=== PATIENT | male | born 1970 | race African-American/Black ===

== ENCOUNTER 2017-08-20 08:51 | Emergency (ER) | payer MEDICARE, MEDICAID ==
[2017-08-20 09:49] VITALS: TEMP 96.8
--- NOTE | 2017-08-20 11:03 | ED.PDOC ---
History of Present Illness - General Chief Complaint: GI Problem Stated Complaint: abdominal pain Time Seen by Provider: 08/20/17 11:03 Exam Limitations: no limitations - History of Present Illness Initial Comments: Taz Segura 46 y/o male stated that he had sharp constant lower abdominal pain since yesterday with vomiting 2-3 x no diarrhea.Had recent A-V fistula for dialysis yesterday due to ESRD from uncontrolled HTN. Abdominal Pain Onset Location: other - lower abdomen Pain Radiation: no radiation Quality: sharpness, steady Timing/Duration: 24 hours Improving Factors: nothing Worsening Factors: nothing Associated Symptoms: other - see hpi Review of Systems - Review of Systems Constitutional: States: no symptoms reported EENTM: States: no symptoms reported Respiratory: States: no symptoms reported Cardiology: States: no symptoms reported Genitourinary: States: see HPI, other - esrd All other Systems: Reviewed and Negative, No Change from Baseline Past Medical History (General) - Patient Medical History Hx Cardiac Disorders: Yes - cad Hx Congestive Heart Failure: No Hx Hypertension: Yes Hx Renal Disease: Yes Hx Cancer: No Surgical History: other - a-v fistula dialysis access - Vaccination History Hx Tetanus, Diphtheria Vaccination: Yes Hx Influenza Vaccination: Yes Hx Pneumococcal Vaccination: Yes - 2015 - Social History Hx Tobacco Use: No Hx Alcohol Use: No Family Medical History - Family History Father Family History: Unknown Living Status: Unknown Hx Family Hypertension: Yes - parents Hx Family Cancer: Yes - lungs-dad Physical Exam - Physical Exam General Appearance: Alert, Comfortable, No apparent distress Eyes, Ears, Nose, Throat Exam: normal ENT inspection, pharynx normal Neck: non-tender, full range of motion, supple Respiratory: lungs clear, normal breath sounds, no respiratory distress Cardiovascular/Chest: normal peripheral pulses, regular rate, rhythm, no murmur Peripheral Pulses: No deficit Gastrointestinal/Abdominal: normal bowel sounds, soft, tenderness - lower abdomen no peritoneal signs Back Exam: no CVA tenderness, no vertebral tenderness Extremity: no pedal edema, no calf tenderness Neurologic: alert, oriented x 3 Progress - Progress Progress: 08/20/17 12:24 Vital Signs - 8 hr 08/20/17 09:38 Temperature 96.8 F L Pulse Rate [ 61 pulse ox] Respiratory 18 Rate Blood Pressure 142/99 [Right Arm] O2 Sat by Pulse 97 Oximetry - Results/Orders Results/Orders: 08/20/17 11:03 IV Care:Saline Lock per Protoc QSHIFT 08/20/17 11:04 EKG Assessment ONCE 08/20/17 11:15 EKG STAT EKG STAT 08/20/17 11:20 CARDIAC PANEL,ER Stat HEPATIC FUNCTION PANEL Stat LIPASE Stat 08/20/17 11:34 URINALYSIS Stat 08/20/17 12:45 Be Our Guest Tray (BOG) ONCE Laboratory Results - last 24 hr 08/20/17 08/20/17 08/20/17 11:20 11:20 11:20 WBC 7.2 RBC 4.48 L Hgb 11.1 L Hct 35.5 L MCV 79.3 L MCH 24.7 L MCHC 31.1 L RDW 18.9 H Plt Count 260 MPV 7.7 Absolute Neuts (auto) 4.60 Absolute Lymphs (auto) 1.60 Absolute Monos (auto) 0.60 Absolute Eos (auto) 0.20 Absolute Basos (auto) 0.10 Neutrophils % 64.2 Lymphocytes % 22.7 Monocytes % 8.7 Eosinophils % 3.2 Basophils % 1.2 PT 15.4 H INR 1.330 PTT (SP) 38.2 H Sodium 141 Potassium 4.4 Chloride 95 L Carbon Dioxide 33 H Anion Gap 17.4 BUN 44 H Creatinine 11.37 H* BUN/Creatinine Ratio 3.9 L Random Glucose 94 Serum Osmolality 292.2 Uric Acid Calcium 9.6 Phosphorus Magnesium 2.2 Total Bilirubin 0.5 Cancelled Direct Bilirubin < 0.1 Cancelled Indirect Bilirubin 0.4 Cancelled AST 13 Cancelled ALT 11 Cancelled Alkaline Phosphatase 148 H Cancelled Creatine Kinase 85 CK-MB (CK-2) 1.6 Troponin I < 0.02 Cancelled Serum Total Protein 8.2 Cancelled Albumin 4.1 Cancelled Lipase 50 Cancelled Urine Color Urine Appearance Urine pH Ur Specific [place] Urine Protein Urine Glucose (UA) Urine Ketones Urine Blood Urine Nitrite Urine Bilirubin Urine Urobilinogen Ur Leukocyte Esterase Urine RBC Urine WBC Ur Epithelial Cells Urine Bacteria Urine Opiates Screen Urine Barbiturates Ur Phencyclidine Scrn U Amphetamin/Meth Scrn U Benzodiazepines Scrn U Cocaine Metab Screen U Cannabinoids Screen 08/20/17 08/20/17 08/20/17 12:32 13:05 13:30 WBC RBC Hgb Hct MCV MCH MCHC RDW Plt Count MPV Absolute Neuts (auto) Absolute Lymphs (auto) Absolute Monos (auto) Absolute Eos (auto) Absolute Basos (auto) Neutrophils % Lymphocytes % Monocytes % Eosinophils % Basophils % PT INR PTT (SP) Sodium Potassium Chloride Carbon Dioxide Anion Gap BUN Creatinine BUN/Creatinine Ratio Random Glucose Serum Osmolality Uric Acid 4.5 Calcium Phosphorus 4.4 Magnesium Total Bilirubin Direct Bilirubin Indirect Bilirubin AST ALT Alkaline Phosphatase Creatine Kinase CK-MB (CK-2) Troponin I Serum Total Protein Albumin Lipase Urine Color Yellow Urine Appearance Clear Urine pH >= 9.0 H* Ur Specific [place] 1.015 Urine Protein >=300 H Urine Glucose (UA) Negative Urine Ketones Negative Urine Blood Trace-intact H Urine Nitrite Negative Urine Bilirubin Negative Urine Urobilinogen 0.2 Ur Leukocyte Esterase Trace H Urine RBC 0-1 Urine WBC 0-1 Ur Epithelial Cells 0 Urine Bacteria 0 Urine Opiates Screen Negative Urine Barbiturates Negative Ur Phencyclidine Scrn Negative U Amphetamin/Meth Scrn Negative U Benzodiazepines Scrn Negative U Cocaine Metab Screen Negative U Cannabinoids Screen Negative - EKG/XRAY/CT EKG: Sinus, no ST T wave changes Comments: HR -65;LVH CT Ordered: Yes - abd/p-diverticulosis;large volume of stool colon Departure - Departure Clinical Impression: Constipation by delayed colonic transit Abdominal pain Qualifiers: Abdominal location: lower abdomen, unspecified Qualified Code(s): R10.30 - Lower abdominal pain, unspecified Chronic renal disease Qualifiers: Chronic kidney disease stage: on chronic dialysis Qualified Code(s): N18.6 - End stage renal disease; Z99.2 - Dependence on renal dialysis Time of Disposition: 13:52 Disposition: Discharge to Home or Self Care Condition: Fair Departure Forms: ED Discharge - Pt. Copy, Patient Portal Self Enrollment Instructions: DI for Constipation, Constipation, Constipation (Alternative Therapy) Referrals: Leonardo Rai MD [Primary Care Provider] - 1-2 Weeks Prescriptions: Docusate Sodium [Colace Cap] 200 mg PO BEDTIME #60 cap Home Medications: Ambulatory Orders Albuterol Inhaler [Ventolin Hfa Inhaler] 1 puff INH PRN 11/07/15 Allopurinol [Zyloprim] 300 mg PO DAILY 11/07/15 Apixaban [Eliquis] 5 mg PO BID 11/07/15 Aspirin [(None)] 325 mg PO QD 11/07/15 Bumetanide [Bumex] 2 mg PO BID 11/07/15 Clonazepam 0.5 mg PO TID 11/07/15 Clonidine HCl 0.3 mg PO TID 11/07/15 Cyclobenzaprine HCl 10 mg PO TID PRN 11/07/15 Gabapentin 100 mg PO .AFTER DIALYSIS 11/07/15 HYDROcodone 10MG/APAP 325MG [[place] 10/325] 1 tab PO Q6H PRN 11/07/15 Isosorbide Mononitrate [Isosorbide Mononitrate ER] 60 mg PO DAILY 11/07/15 Lisinopril 40 mg PO DAILY 11/07/15 Metoprolol Tartrate 100 mg PO BEDTIME 11/07/15 Metoprolol Tartrate 150 mg PO .AM AND NOON 11/07/15 Nitroglycerin [Nitrostat] 1 ea SL PRN 11/07/15 Sertraline HCl [Zoloft] 75 mg PO DAILY 11/07/15 Sevelamer Carbonate [Renvela] 800 mg PO TID 11/07/15 amLODIPine BESYLATE [Norvasc] 10 mg PO DAILY 11/07/15 hydrALAZINE HCl [(None)] 50 mg PO QID 11/07/15 raNITIdine HCL [Zantac] 150 mg PO PRN 11/07/15 Docusate Sodium [Colace Cap] 200 mg PO BEDTIME #60 cap 08/20/17 Additional Instructions: Follow up with primary Md 25 Aug 2017;Return to emergency room as needed
--- NOTE | 2017-08-20 13:43 | CT ---
EXAM DESCRIPTION: Abdoment/Pelvis w/o Contrast CLINICAL HISTORY: 46 years, Male, abdominal pain COMPARISON: None. TECHNIQUE: CT of the abdomen and pelvis is performed according to our non contrast protocol. FINDINGS: The lung bases are clear. Liver, spleen, and pancreas are unremarkable. The right kidney is unremarkable. The left kidney is unremarkable. Appendix well seen and unremarkable. Extensive colonic diverticulosis involving the entire colon. Large volume of stool throughout the colon. There is no lymphadenopathy, inflammation, or free fluid observed. IMPRESSION: 1. Colonic diverticulosis 2. Likely constipation This exam was performed according to our departmental dose-optimization program, which includes automated exposure control, adjustment of the mA and/or kV according to patient size and/or use of iterative reconstruction technique. Electronically signed by: Ulysses Poon MD 08/20/2017 1:42 PM CDT
[2017-08-20 14:08] VITALS: BP 150/103; O2SAT 95
== END 2017-08-20 14:10 | disposition home or self-care (01) ==
LOC: ER 08:51
DX: K59.01 Slow transit constipation (principal); I12.0 Hypertensive chronic kidney disease with stage 5 chronic kidney disease or end stage renal disease; N18.6 End stage renal disease; Z99.2 Dependence on renal dialysis; I25.10 Atherosclerotic heart disease of native coronary artery without angina pectoris; Z79.82 Long term (current) use of aspirin; Z79.02 Long term (current) use of antithrombotics/antiplatelets; Z79.891 Long term (current) use of opiate analgesic